=== PATIENT | female | born 1985 | race African-American/Black ===

== ENCOUNTER 2018-02-28 04:13 | Inpatient (IN) ==
--- NOTE | 2018-02-28 04:55 | ED ---
History of Present Illness Primary Care Physician: care with Dr. Reynoso Chief Complaint: Contractions History of Present Illness: 32-year-old at 38+ weeks presents complaining of contractions. records at this time not available but patient reports an uneventful course. Patient speaks Creole Weeks Gestation:: 38 Para: 0 : 1 Review of Systems All other systems reviewed negative except as stated in HPI Exam Vital signs: Vital Signs 02/28/18 04:38 Temperature 97.6 F Pulse Rate 70 Respiratory Rate 20 Blood Pressure 147/96 H Narrative: GENERAL: Well-nourished, well-developed patient. SKIN: Warm and dry. HEAD: Normocephalic and atraumatic. EYES: No scleral icterus. No injection or drainage. ENT: No nasal drainage noted. Mucous membranes pink. Airway patent. NECK: Supple, trachea midline. No JVD. CARDIOVASCULAR: Regular rate and rhythm without murmurs, gallops, or rubs. RESPIRATORY: Breath sounds equal bilaterally. No accessory muscle use. BREASTS: Bilateral exam showed no masses , no retractions, no nipple discharge. ABDOMEN/GI: Abdomen soft, non-tender, bowel sounds present, no rebound, no guarding Gravid to 38 weeks size Fundal Height: 38 GENITOURINARY: External Genitalia: intact and normal in appearance BUS glands: Unremarkable Cervix: Soft Dilatation: 2 Effacement: 90 Station: 0 Presentation: Vertex Membranes: Intact Uterine Contractions: Present FHT's: Category: 1 EXTREMITIES: No cyanosis or edema. BACK: Nontender without obvious deformity. No CVA tenderness. NEUROLOGICAL: Awake and alert. Motor and sensory grossly within normal limits. Normal speech. Assessment and Plan - Diagnosis (1) Uterine contractions Status: Acute (2) 38 weeks gestation of Code(s): Z3A.38 - 38 weeks gestation of Status: Acute - Plan Plan after reactive NST ambulate times 1 hour and recheck Discharge Plan - Physicians Team ED Provider: Montserrat Cannon Primary Care Provider: NOT REQUIRED, - Discharge Instructions Print Language: Ch[place] Creole
[2018-02-28] MEDS ORDERED: Sod Chloride 0.9% Inj 1,000 ML IV.CONT PRN (07:44)
[2018-02-28] MEDS ORDERED: Penicillin G Potassium Inj 5,000,000 UNIT in Sodium Chloride 0.9% Inj 100 ML IV.SIG ONE ×2 (07:44→10:00)
[2018-02-28] MEDS ORDERED: fentaNYL Citrate Inj 100 MCG/2 ML Ampul IV.PUSH PRN ×2 (07:44)
[2018-02-28] MEDS ORDERED: Sodium Chlor 0.9% Inj 500 ML IV.SIG PRN (07:44)
[2018-02-28] MEDS ORDERED: Oxytocin 30 Units/500ml Premix 30 UNITS/500 ML BAG IV.SIG ONE (07:44)
[2018-02-28] MEDS ORDERED: Naloxone Inj 0.4 MG/ML Vial IV.PUSH PRN ×2 (07:44→16:55)
[2018-02-28] MEDS ORDERED: Citric Acid/Sodium Citrate Liq 30 ML UDC PO SCH (07:45)
--- NOTE | 2018-02-28 07:54 | P.HPOB ---
Patient Name: Glenn Polk Date of : 85 Patient Status: Emergency Emergency Provider: Montserrat Cannon Date: 02/28/18 04:51 Initialization Date: 02/28/18 04:51 History of Present Illness Primary Care Physician: care with Dr. Reynoso Chief Complaint: Contractions History of Present Illness: 32-year-old at 38+ weeks presents complaining of contractions. records at this time not available but patient reports an uneventful course. Patient speaks Creole Weeks Gestation:: 38 Para: 0 : 1 Review of Systems All other systems reviewed negative except as stated in HPI Exam Vital signs: Vital Signs 02/28/18 04:38 Temperature 97.6 F Pulse Rate 70 Respiratory Rate 20 Blood Pressure 147/96 H Narrative: GENERAL: Well-nourished, well-developed patient. SKIN: Warm and dry. HEAD: Normocephalic and atraumatic. EYES: No scleral icterus. No injection or drainage. ENT: No nasal drainage noted. Mucous membranes pink. Airway patent. NECK: Supple, trachea midline. No JVD. CARDIOVASCULAR: Regular rate and rhythm without murmurs, gallops, or rubs. RESPIRATORY: Breath sounds equal bilaterally. No accessory muscle use. BREASTS: Bilateral exam showed no masses , no retractions, no nipple discharge. ABDOMEN/GI: Abdomen soft, non-tender, bowel sounds present, no rebound, no guarding Gravid to 38 weeks size Fundal Height: 38 GENITOURINARY: External Genitalia: intact and normal in appearance BUS glands: Unremarkable Cervix: Soft Dilatation: Progression to 4 cm from 2 cm Effacement: 90 Station: 0 to -1 Presentation: Vertex Membranes: Intact Uterine Contractions: Present FHT's: Category: 1 EXTREMITIES: No cyanosis or edema. BACK: Nontender without obvious deformity. No CVA tenderness. NEUROLOGICAL: Awake and alert. Motor and sensory grossly within normal limits. Normal speech. Assessment and Plan - Diagnosis (1) Uterine contractions Status: Acute (2) 38 weeks gestation of Code(s): Z3A.38 - 38 weeks gestation of Status: Acute Cervical progression noted. Dr. Lara is covering-at this time GBS status is unknown we will obtain the records and if not available will perform on the floor
[2018-02-28] MEDS ORDERED: Oxytocin 30 Units/500ml Premix 30 UNITS/500 ML BAG IV.CONT PRN ×2 (08:43→16:55)
[2018-02-28 08:48] LABS: Amphetamine Urine With Conf Neg (Neg); Benzodiazepine Urine With Conf Neg (Neg); Cocaine Urine With Conf Neg (Neg); Opiates Urine With Conf Neg (Neg)
[2018-02-28 08:50] LABS: Cannabinoid Urine With Conf Neg (Neg)
[2018-02-28 08:51] LABS: Bacteria,Urine Rare /hpf; Bilirubin,Urine Negative (Negative); Clarity,Urine Hazy (Clear); Color,Urine Yellow (Yellw/Straw); Glucose,Urine (UA) Negative (Negative); Leukocyte Esterase,Urine Large (Negative); Mucus,Urine Few /lpf (Occasional); Nitrite,Urine Negative (Negative); Specific Gravity,Urine 1.012 (1.002-1.035); Squamous Epithelial Cell,Urine 8 /hpf (0-5)
[2018-02-28 09:00] LABS: Baso % (Auto) 0.4 % (0.0-2.0); Eos % (Auto) 0.3 % (0.0-4.0); Hematocrit 35.5 % (35.0-46.0); Hemoglobin 11.7 gm/dL (11.6-15.3); Lymph # (Auto) 1.9 th/mm3 (1.0-4.8); Lymph % (Auto) 25.3 % (9.0-44.0); Mean Corpuscular HGB Conc 33.1 % (32.0-36.0); Mean Corpuscular Volume 87.5 fL (80.0-100.0); Mean Platelet Volume 9.6 fL (7.0-11.0); Mono # (Auto) 0.9 th/mm3 (0.0-0.9); Mono % (Auto) 12.4 % (0.0-8.0); Neut # (Auto) 4.7 th/mm3 (1.8-7.7); Neut % (Auto) 61.6 % (16.0-70.0); Platelet Count 242 th/mm3 (150-450); Red Blood Count 4.06 mil/mm3 (4.00-5.30); Red Cell Distribution Width 15.2 % (11.6-17.2); White Blood Count 7.5 th/mm3 (4.0-11.0)
[2018-02-28 09:27] LABS: Alanine Aminotransferase 24 U/L (10-53); Albumin 3.2 g/dL (3.4-5.0); Anion Gap 7 meq/L (5-15); Aspartate Aminotransferase 25 U/L (15-37); Blood Urea Nitrogen 5 mg/dL (7-18); Calcium 8.5 mg/dL (8.5-10.1); Carbon Dioxide 22.9 meq/L (21.0-32.0); Chloride 108 meq/L (98-107); Glomerular Filtration Rate Greater Than 89 mL/min (>89); Glucose,Random 70 mg/dL (74-106); Potassium 3.8 meq/L (3.5-5.1); Sodium 138 meq/L (136-145); Uric Acid 3.7 mg/dl (2.6-6.0)
[2018-02-28 09:28] LABS: Alkaline Phosphatase 119 U/L (45-117); Total Protein 7.9 g/dL (6.4-8.2)
[2018-02-28] MEDS ORDERED: Penicillin G Potassium Inj 2,500,000 UNIT in Sodium Chlor 0.9% Inj 100 ML IV.SIG SCH ×2 (11:44→14:00)
[2018-02-28] MEDS ORDERED: fentaNYL 2MCG-Bupiv 0.125% Epi 150 ML EPIDURAL ONE (14:39)
[2018-02-28] MEDS ORDERED: Bupivacaine/Epinephrine PF Inj 0.25% 10 ML Vial ONE (15:46)
[2018-02-28] MEDS ORDERED: Sodium Chlor 0.9% Inj 10 ML ONE (15:46)
[2018-02-28] MEDS ORDERED: Lidocaine PF 1% Inj 5 ML Vial ONE (15:46)
[2018-02-28] MEDS ORDERED: fentaNYL Citrate Inj 100 MCG/2 ML Ampul EPIDURAL ONE (15:59)
[2018-02-28] MEDS ORDERED: fentaNYL 2MCG-Bupiv 0.125% Epi 150 ML EPIDURAL PRN (15:59)
[2018-02-28] MEDS ORDERED: Diphtheria/Tetanus/Pertussis Vaccine Inj 0.5 ML Syringe IM ONE (16:00)
[2018-02-28] MEDS ORDERED: Measles/Mumps/Rubella Vaccine Inj 0.5 ML Vial SQ ONE (16:00)
--- NOTE | 2018-02-28 16:54 | P.OBDELI ---
Weeks Gestation: 38 Patient Started Active Labor: Yes Medical Induction of Labor: No Artificial Rupture of Membrane: Yes Anesthesia: Epidural Episiotomy: none Vaginal Delivery: Normal, Spontaneous Presentation: Occiput anterior Nuchal Cord: None Delayed Cord Clamping (45 sec): Yes Placenta: Spontaneous delivery, Intact, 3 vessel cord Laceration: Vaginal, 2 deg Repair: Chromic running Estimated blood loss (mL): 300 : Female Infant Female A Delivery Date: 02/28/18 Infant Delivery Time: 16:22 score (1 min): 9 score (5 min): 9 Additional Information: called to room for bradycardia, hospitalist Dr. Murphy at bedside applying scalp electrode, states pt is complete and 0 station; pitocin was turned off, oxygen applied by facemask, heart tones spontaneously improved and pt able to push with successful vaginal of healthy female infant
[2018-02-28] MEDS ORDERED: Benzocaine 20% Top Spray 60 ML Can TOPICAL PRN (16:55)
[2018-02-28] MEDS ORDERED: Witch Hazel 50%/Glyderin 12.5% 40 Pad Jar RECTAL PRN (16:55)
[2018-02-28] MEDS ORDERED: Acetaminophen 325 MG Tablet PO PRN (16:55)
[2018-02-28] MEDS ORDERED: Bisacodyl 10 MG Supp RECTAL PRN (16:55)
[2018-02-28] MEDS ORDERED: Zolpidem Tartrate 5 MG Tablet PO PRN (21:00)
[2018-03-01] MEDS: Prenatal Vit/Ca/Iron/Folic Acid Tablet PO SCH (08:49)
[2018-03-01] MEDS: Senna/Docusate Sodium 8.6/50 MG Tablet PO SCH ×2 (08:50→21:50)
--- NOTE | 2018-03-01 09:07 | P.PNOB ---
Subjective Post day: 1 Interval history: s/p of healthy full term infant girl; doing well, pain well controlled, lochia light, bottle feeding but wants to try Objective Vital Signs/I&O: Vital Signs 02/28/18 09:50 02/28/18 10:33 02/28/18 11:08 Temperature Pulse Rate 76 72 69 Respiratory Rate Blood Pressure 143/93 H 148/91 H 163/94 H 02/28/18 11:42 02/28/18 11:45 02/28/18 12:19 Temperature 98.1 F Pulse Rate 77 79 Respiratory Rate 18 Blood Pressure 143/100 H 150/99 H 02/28/18 13:01 02/28/18 13:15 02/28/18 15:12 Temperature 98.2 F Pulse Rate 78 Respiratory Rate 18 Blood Pressure 137/89 158/102 H 02/28/18 15:25 02/28/18 15:55 02/28/18 16:17 Temperature Pulse Rate 86 89 115 H Respiratory Rate Blood Pressure 141/72 H 121/92 H 132/97 H 02/28/18 16:31 02/28/18 16:45 02/28/18 16:57 Temperature Pulse Rate 81 80 82 Respiratory Rate 20 Blood Pressure 134/76 146/70 H 157/112 H 02/28/18 17:16 02/28/18 17:26 02/28/18 17:32 Temperature Pulse Rate 73 77 83 Respiratory Rate Blood Pressure 157/90 H 140/81 120/64 02/28/18 18:15 02/28/18 23:00 03/01/18 04:00 Temperature 98.4 F 98.5 F 99.7 F H Pulse Rate 84 75 87 Respiratory Rate 18 18 20 Blood Pressure 142/91 H 154/90 H 139/79 03/01/18 08:00 Temperature 97.9 F Pulse Rate 73 Respiratory Rate 18 Blood Pressure 125/77 Intake & Output 02/28/18 03/01/18 03/01/18 18:59 06:59 18:59 Intake Total 1200 / 1200 Balance 1200 / 1200 Weight 79 kg Intake: IV 1200 / 1200 LR 1000 mL Inj 1,000 ML @ 125 1000 / 1000 mls/hr IV.CONT .Q8H [facility] Rx#: [id number] Pfizerpen-G Inj 2,500,000 UNIT 100 / 100 In NS Inj 100 ML @ 200 mls/hr IV.SIG Q4H [facility] Rx#:[id number] Pfizerpen-G Inj 5,000,000 UNIT 100 / 100 In NS Inj 100 ML @ 200 mls/hr IV.SIG ONCE ONE Rx#:[id number] Other: Weight On Admission 79 kg Result Diagrams: 02/28/18 08:00 02/28/18 08:00 Objective Remarks: GENERAL: Well-nourished, well-developed patient. CARDIOVASCULAR: Regular rate and rhythm without murmurs, gallops, or rubs. RESPIRATORY: Breath sounds equal bilaterally. No accessory muscle use. ABDOMEN/GI: Abdomen soft, non-tender. Fundus: Firm, non-tender at umbilicus. GENITOURINARY: Light to moderate bleeding. EXTREMITIES: No cyanosis or edema, non-tender, without signs of DVT. Medications and IVs: Active Medications Acetaminophen (Tylenol) 650 mg PO Q4H PRN PRN Reason: PAIN SCALE 1 TO 2 Al Hydroxide/Mg Hydroxide (Milk Of Magnesia Liq) 30 ml PO Q12H PRN PRN Reason: Mild Constipation Benzocaine (Americaine 20% Top [place]) 1 spray TOPICAL Q4H PRN PRN Reason: For Perineum Discomfort Bisacodyl (Dulcolax Supp) 10 mg RECTAL DAILY PRN PRN Reason: SEVERE CONSITIPATION Sodium Chloride (Ns Inj) 500 mls @ 1,000 mls/hr IV.SIG UNSCH PRN PRN Reason: SEE LABEL COMMENTS Sodium Chloride (Ns Inj) 1,000 mls @ 100 mls/hr IV.CONT .Q10H PRN PRN Reason: SEE LABEL COMMENTS Oxytocin (Pitocin 30 Units/Ns 500 Ml Premix) 30 units in 500 mls @ 100 mls/hr IV.CONT UNSCH PRN PRN Reason: Heavy bleeding Ibuprofen (Motrin) 800 mg PO Q8H PRN PRN Reason: For Cramping Last Admin: 03/01/18 03:34 Dose: 800 mg Lactulose (Lactulose Liq) 30 ml PO DAILY PRN PRN Reason: SEVERE CONSITIPATION Lidocaine HCl (Xylocaine 1% Inj) 0.1 ml I-DERMAL PRN PRN PRN Reason: For IV start Stop: 03/03/18 07:43 Lidocaine HCl (Xylocaine 1% Inj) 10 ml INFILTRATN PRN PRN PRN Reason: For episiotomy repair Stop: 03/02/18 07:43 Mineral Oil (Muri-Lube Oil) 10 ml TOPICAL PRN PRN PRN Reason: PRN perineal massage Miscellaneous Information (Misc Information) 1 each OTHER UNSCH PRN PRN Reason: SEE LABEL COMMENTS Stop: 03/01/18 15:59 Miscellaneous Information (Misc Information) 1 each OTHER UNSCH PRN PRN Reason: SEE LABEL COMMENTS Stop: 03/01/18 15:59 Naloxone HCl (Narcan Inj) 0.1 mg IV.PUSH Q2M PRN PRN Reason: for opiate reversal Naloxone HCl (Narcan Inj) 0.1 mg IV.PUSH Q2M PRN PRN Reason: for opiate reversal Ondansetron HCl (Zofran Odt) 4 mg PO Q6H PRN PRN Reason: NAUSEA OR VOMITING Oxycodone/Acetaminophen (Percocet 5/325 Mg) 1 tab PO Q4H PRN PRN Reason: PAIN SCALE 3 TO 5 Oxycodone/Acetaminophen (Percocet 5/325 Mg) 2 tab PO Q4H PRN PRN Reason: PAIN SCALE 6 TO 10 Vit/Calcium/Iron/Folic Ac (Stuartnatal Plus 3) 1 tab PO DAILY [facility] Last Admin: 03/01/18 08:49 Dose: 1 tab Senna/Docusate Sodium (Janeth-Colace) 1 tab PO BID [facility] Last Admin: 03/01/18 08:50 Dose: 1 tab Sennosides (Senokot) 17.2 mg PO Q12H PRN PRN Reason: Moderate Constipation Sodium Chloride (Ns Flush) 2 ml IV.FLUSH BID [facility] Sodium Chloride (Ns Flush) 2 ml IV.FLUSH PRN PRN PRN Reason: FLUSH AFTER USING IV ACCESS Witch [place]/Glycerin (Tucks Pads) 1 applicatio RECTAL QID PRN PRN Reason: HEMORRHOIDS Zolpidem Tartrate (Ambien) 5 mg PO HS PRN PRN Reason: SLEEP Assessment and Plan - Diagnosis (1) (spontaneous vaginal delivery) Code(s): O80 - Encounter for full-term uncomplicated delivery Status: Acute - Plan PPD#1 - routine supportive care, support - anticipate d/c 03/02/18 if meeting criteria Discharge Planning: routine
[2018-03-02] MEDS: Senna/Docusate Sodium 8.6/50 MG Tablet PO SCH (08:28)
[2018-03-02] MEDS: Prenatal Vit/Ca/Iron/Folic Acid Tablet PO SCH (08:43)
--- NOTE | 2018-03-02 10:15 | P.PNOB ---
Subjective Post day: 2 Interval history: doing well, bottle feeding, desires discharge to home Objective Vital Signs/I&O: Vital Signs 03/01/18 20:00 03/02/18 08:00 Temperature 97.9 F 97.7 F Pulse Rate 61 77 Respiratory Rate 16 18 Blood Pressure 144/99 H 133/91 H Result Diagrams: 02/28/18 08:00 02/28/18 08:00 Objective Remarks: GENERAL: Well-nourished, well-developed patient. CARDIOVASCULAR: Regular rate and rhythm without murmurs, gallops, or rubs. RESPIRATORY: Breath sounds equal bilaterally. No accessory muscle use. ABDOMEN/GI: Abdomen soft, non-tender. Fundus: Firm, non-tender at umbilicus. GENITOURINARY: Light to moderate bleeding. EXTREMITIES: No cyanosis or edema, non-tender, without signs of DVT. Medications and IVs: Active Medications Acetaminophen (Tylenol) 650 mg PO Q4H PRN PRN Reason: PAIN SCALE 1 TO 2 Al Hydroxide/Mg Hydroxide (Milk Of Magnesia Liq) 30 ml PO Q12H PRN PRN Reason: Mild Constipation Benzocaine (Americaine 20% Top [place]) 1 spray TOPICAL Q4H PRN PRN Reason: For Perineum Discomfort Bisacodyl (Dulcolax Supp) 10 mg RECTAL DAILY PRN PRN Reason: SEVERE CONSITIPATION Sodium Chloride (Ns Inj) 500 mls @ 1,000 mls/hr IV.SIG UNSCH PRN PRN Reason: SEE LABEL COMMENTS Sodium Chloride (Ns Inj) 1,000 mls @ 100 mls/hr IV.CONT .Q10H PRN PRN Reason: SEE LABEL COMMENTS Oxytocin (Pitocin 30 Units/Ns 500 Ml Premix) 30 units in 500 mls @ 100 mls/hr IV.CONT UNSCH PRN PRN Reason: Heavy bleeding Ibuprofen (Motrin) 800 mg PO Q8H PRN PRN Reason: For Cramping Last Admin: 03/01/18 17:08 Dose: 800 mg Lactulose (Lactulose Liq) 30 ml PO DAILY PRN PRN Reason: SEVERE CONSITIPATION Lidocaine HCl (Xylocaine 1% Inj) 0.1 ml I-DERMAL PRN PRN PRN Reason: For IV start Stop: 03/03/18 07:43 Mineral Oil (Muri-Lube Oil) 10 ml TOPICAL PRN PRN PRN Reason: PRN perineal massage Naloxone HCl (Narcan Inj) 0.1 mg IV.PUSH Q2M PRN PRN Reason: for opiate reversal Naloxone HCl (Narcan Inj) 0.1 mg IV.PUSH Q2M PRN PRN Reason: for opiate reversal Ondansetron HCl (Zofran Odt) 4 mg PO Q6H PRN PRN Reason: NAUSEA OR VOMITING Oxycodone/Acetaminophen (Percocet 5/325 Mg) 1 tab PO Q4H PRN PRN Reason: PAIN SCALE 3 TO 5 Oxycodone/Acetaminophen (Percocet 5/325 Mg) 2 tab PO Q4H PRN PRN Reason: PAIN SCALE 6 TO 10 Vit/Calcium/Iron/Folic Ac (Stuartnatal Plus 3) 1 tab PO DAILY [facility] Last Admin: 03/02/18 08:43 Dose: 1 tab Senna/Docusate Sodium (Janeth-Colace) 1 tab PO BID [facility] Last Admin: 03/02/18 08:28 Dose: Not Given Sennosides (Senokot) 17.2 mg PO Q12H PRN PRN Reason: Moderate Constipation Sodium Chloride (Ns Flush) 2 ml IV.FLUSH BID [facility] Last Admin: 03/02/18 08:28 Dose: Not Given Sodium Chloride (Ns Flush) 2 ml IV.FLUSH PRN PRN PRN Reason: FLUSH AFTER USING IV ACCESS Witch [place]/Glycerin (Tucks Pads) 1 applicatio RECTAL QID PRN PRN Reason: HEMORRHOIDS Zolpidem Tartrate (Ambien) 5 mg PO HS PRN PRN Reason: SLEEP Assessment and Plan - Diagnosis (1) (spontaneous vaginal delivery) Code(s): O80 - Encounter for full-term uncomplicated delivery Status: Acute - Plan PPD#2 - meeting all criteria, d/c to home today, routine precautions reviewed Discharge Planning: routine
== END 2018-03-02 12:04 | disposition home or self-care (01) ==
LOC: HOBED 04:13 → H2E 07:47 → H1EA 18:04
PROVIDERS: ADMIT Obstetrics & Gynecology; ATTEND Obstetrics & Gynecology